=== PATIENT | female | born 1980 | race Caucasian/White ===

== ENCOUNTER 2020-12-14 16:21 | Observation (INO) ==
[2020-12-14] MEDS ORDERED: Naloxone 0.4 MG/ML INJ IVP PRN (21:44)
[2020-12-14] MEDS ORDERED: Ondansetron 4 MG/2 ML VIAL IVP PRN (21:53)
[2020-12-14] MEDS ORDERED: Melatonin 3 MG TABLET PO PRN (21:53)
[2020-12-14] MEDS: Ringers Solution, Lactated 1,000 ML IVC SCH (22:44)
[2020-12-15 01:02] LABS: Basophils % 0.4 %; Eosinophils # 0.1 K/mcL (0.0-0.6); Eosinophils % 1.5 %; Hematocrit 35.8 % (35.3-44.9); Hemoglobin 11.9 g/dL (11.5-15.4); Immature Granulocytes % 0.1 % (0-4); Lymphocytes # 3.7 K/mcL (0.6-4.6); Mean Corpuscular HGB Conc 33.2 g/dL (31.6-35.5); Mean Corpuscular Hemoglobin 30.7 pg (28.0-33.3); Mean Corpuscular Volume 92.5 fL (83.0-100.0); Mean Platelet Volume 9.1 fL (9.4-12.4); Monocytes # 0.4 K/mcL (0.0-1.3); Monocytes % 6.2 %; Neutrophils # 2.9 K/mcL (1.6-8.9); Platelet Count 222 K/mcL (140-400); Red Blood Count 3.87 M/mcL (3.82-4.97); Red Cell Distribution Width 11.7 % (11.5-14.5); Segmented Neutrophils % 40.8 %; White Blood Count 7.2 K/mcL (4.3-11.1)
[2020-12-15 01:09] LABS: INR 1.1; Prothrombin Time 12.5 Seconds (9.4-12.1)
[2020-12-15 01:24] LABS: BUN/Creatinine Ratio 26 (6-26); Blood Urea Nitrogen 13 mg/dL (6-20); C-Reactive Protein 5 mg/L (Less than 10); Calcium 8.6 mg/dL (8.6-10.3); Carbon Dioxide 27 mEq/L (23-29); Chloride 108 mEq/L (98-107); Glucose 98 mg/dL (70-105); Magnesium 1.7 mg/dL (1.6-2.6); Osmolality,Calculated 288 (280-300); Potassium 3.9 mEq/L (3.5-5.1); Sodium 139 mEq/L (136-145); eGFR For African Americans > 60 (> 60); eGFR For Non-African Americans > 60 (> 60)
[2020-12-15 01:35] LABS: Thyroid Stimulating Hormone 2.158 mcIU/mL (0.340-5.600)
[2020-12-15] MEDS ORDERED: Perflutren Lipid Microsphere 1.3 ML in 0.9 % Sodium Chloride 8.7 ML IVP PRN (02:18)
[2020-12-15] MEDS: *HR* Enoxaparin 40 MG/0.4 ML SYRINGE SQ SCH (06:25)
[2020-12-15] MEDS: Ringers Solution, Lactated 1,000 ML IVC SCH (06:31)
[2020-12-15] MEDS: Acetaminophen 325 MG TABLET PO PRN ×2 (06:47→17:18)
[2020-12-15] MEDS ORDERED: Isovue-370 500 ML BOTTLE IVP ONE (11:15)
[2020-12-15] MEDS: Methylphenidate HCl 5 MG TABLET PO SCH ×2 (11:43→14:58)
[2020-12-15] MEDS: Venlafaxine XR (24 HR) 150 MG CAP.ER.24H PO SCH (11:43)
[2020-12-15] MEDS ORDERED: polyethylene glycoL 3350 17 GM POWD.PACK PO PRN (21:31)
[2020-12-16] MEDS: *HR* Enoxaparin 40 MG/0.4 ML SYRINGE SQ SCH (06:19)
[2020-12-16 08:22] VITALS: BP 100/68; PULSE 69; TEMP 97.9; O2SAT 99
[2020-12-16] MEDS: Venlafaxine XR (24 HR) 150 MG CAP.ER.24H PO SCH (09:32)
[2020-12-16] MEDS: Methylphenidate HCl 5 MG TABLET PO SCH (09:39)
[2020-12-18 18:07] LABS: Metanephrine, Plasma <0.10 nmol/L (0.00-0.49)
[2020-12-18 18:24] LABS: Metanephrine, Plasma <0.10 nmol/L (0.00-0.49)
== END 2020-12-16 11:53 | disposition home or self-care (01) ==
LOC: SUATTDRO 21:09 → 3BNU 21:09 → INTOOBSV 21:09
PROVIDERS: ADMIT Student in an Organized Health Care Education/Training Program; ATTEND Internal Medicine